=== PATIENT | female | born 1965 | race Caucasian/White ===

== ENCOUNTER → 2017-08-23 | Outpatient (CLI) | payer BC, OTHER ==
[~2017-08-23] MED LIST: ACET-2267 PO; CEPH500C PO; CYCL10TA9 PO; METH4TAB10 PO; PRD10T PO
--- NOTE | 2017-08-24 09:03 | Diagnostic Imaging Report ---
INDICATION: Routine screening. Comparison is made with prior study from 10/10/2013. The current study was also evaluated with a Computer Aided Detection (CAD) system. Both breasts remain markedly dense and heterogeneous, limiting the sensitivity of mammography. The overall parenchymal pattern appears stable. There is a tiny well-defined nodular density in the retroareolar and outer aspect of the right breast best seen on the CC view. Additional views are recommended. Left breast is unremarkable. No malignant appearing microcalcifications are seen. The axillae are unremarkable. IMPRESSION: Retroareolar lateral right breast density. Further evaluation with additional views and ultrasound recommended. ACR BI-RADS Category 0: Incomplete. (Needs additional imaging evaluation). Result letter will be mailed to the patient. Note: At least 10% of breast cancer is not imaged by mammography. Dictated by: Dictated on workstation # [id number]
== END ==
LOC: RAD 15:40
PROVIDERS: ATTEND Nurse Practitioner
DX: Z12.31 Encounter for screening mammogram for malignant neoplasm of breast (principal)
CPT/HCPCS: 77067

== ENCOUNTER → 2018-02-03 | Outpatient (CLI) | payer OTHER ==
[2018-02-03 15:56] LABS: BASOPHILS % (AUTO) 0 % (0-10); EOSINOPHILS # (AUTO) 0.3 10^3/uL (0.0-0.3); EOSINOPHILS % (AUTO) 4 % (0-10); HEMATOCRIT 39 % (35-52); LYMPHOCYTES % (AUTO) 43 % (12-44); MEAN CORPUSCULAR HEMOGLOBIN 30 PG (25-34); MEAN CORPUSCULAR HGB CONC 33 G/DL (32-36); MEAN CORPUSCULAR VOLUME 91 FL (80-99); MEAN PLATELET VOLUME 9.1 FL (7.4-10.4); MONOCYTES # (AUTO) 0.8 X 10^3 (0.0-1.0); MONOCYTES % (AUTO) 12 % (0-12); NEUTROPHILS # (AUTO) 2.8 X 10^3 (1.8-7.8); NEUTROPHILS % (AUTO) 41 % (42-75); PLATELET COUNT 328 10^3/uL (130-400); RED BLOOD COUNT 4.33 10^6/uL (4.35-5.85); RED CELL DISTRIBUTION WIDTH 13.9 % (10.0-14.5); WHITE BLOOD COUNT 6.9 10^3/uL (4.3-11.0)
[2018-02-03 16:19] LABS: ALANINE AMINOTRANSFERASE 27 U/L (0-55); ALBUMIN 4.2 GM/DL (3.2-4.5); ALKALINE PHOSPHATASE 32 U/L (40-136); BILIRUBIN,TOTAL 0.3 MG/DL (0.1-1.0); BUN/CREATININE RATIO 17; CARBON DIOXIDE 27 MMOL/L (21-32); CHLORIDE 107 MMOL/L (98-107); CREATININE SERUM 0.77 MG/DL (0.60-1.30); GFR ESTIMATED > 60; GLUCOSE 96 MG/DL (70-105); POTASSIUM 3.8 MMOL/L (3.6-5.0); SODIUM 141 MMOL/L (135-145); TOTAL PROTEIN 6.8 GM/DL (6.4-8.2)
--- NOTE | 2018-02-03 16:59 | Diagnostic Imaging Report ---
INDICATION: Allergies. Arthralgias. EXAMINATION: Chest 02/03/2018. FINDINGS: Single frontal view of the chest. The cardiomediastinal silhouette is unremarkable. The pulmonary vasculature is within normal limits. The lungs and pleural spaces are clear. IMPRESSION: No evidence of an acute cardiopulmonary process. Dictated by: Dictated on workstation # [id number]
[2018-02-04 14:51] LABS: ERYTHROCYTE SEDIMENTATION RATE 2 MM/HR (0-30)
== END ==
LOC: LAB 15:29
PROVIDERS: ATTEND Nurse Practitioner Family
DX: M25.50 Pain in unspecified joint (principal)
CPT/HCPCS: 36415; 71045; 80053; 85025; 85652; 86038; 86141

== ENCOUNTER → 2019-12-15 | Outpatient (CLI) | payer OTHER | LOC: LABNPT 08:54 | PROVIDERS: ATTEND Internal Medicine | DX: R11.0 Nausea (principal); Z20.828 Contact with and (suspected) exposure to other viral communicable diseases | CPT/HCPCS: 87635 ==

== ENCOUNTER → 2021-01-15 | Outpatient (CLI) | payer OTHER ==
[2021-01-15 13:31] LABS: BASOPHILS # (AUTO) 0.1 10^3/uL (0.0-0.1); BASOPHILS % (AUTO) 1 % (0-10); EOSINOPHILS # (AUTO) 0.2 10^3/uL (0.0-0.3); EOSINOPHILS % (AUTO) 2 % (0-10); HEMATOCRIT 41 % (35-52); HEMOGLOBIN 13.3 g/dL (11.5-16.0); LYMPHOCYTES # (AUTO) 3.1 10^3/uL (1.0-4.0); LYMPHOCYTES % (AUTO) 44 % (12-44); MEAN CORPUSCULAR HEMOGLOBIN 30 pg (25-34); MEAN CORPUSCULAR HGB CONC 33 g/dL (32-36); MEAN CORPUSCULAR VOLUME 93 fL (80-99); MEAN PLATELET VOLUME 9.1 fL (9.0-12.2); MONOCYTES # (AUTO) 0.7 10^3/uL (0.0-1.0); MONOCYTES % (AUTO) 10 % (0-12); NEUTROPHILS # (AUTO) 3.1 10^3/uL (1.8-7.8); NEUTROPHILS % (AUTO) 43 % (42-75); PLATELET COUNT 303 10^3/uL (130-400); WHITE BLOOD COUNT 7.1 10^3/uL (4.3-11.0)
[2021-01-15 13:50] LABS: ALBUMIN 3.9 GM/DL (3.2-4.5); BILIRUBIN,TOTAL 0.4 MG/DL (0.1-1.0); CALCIUM 8.6 MG/DL (8.5-10.1); CREATININE SERUM 0.83 MG/DL (0.60-1.30); POTASSIUM 3.6 MMOL/L (3.6-5.0); TOTAL PROTEIN 6.7 GM/DL (6.4-8.2)
--- NOTE | 2021-01-15 13:59 | Diagnostic Imaging Report ---
EXAMINATION: Chest three views. HISTORY: Cough and shortness of breath. COMPARISON: 02/03/2018 FINDINGS: A frontal, apical, lordotic and lateral view were obtained. Lungs are hyperinflated. No pleural effusion or pneumothorax. No edema or pneumonia. Heart size is normal. IMPRESSION: 1. Clear lungs. Dictated by: Dictated on workstation # [id number]
== END ==
LOC: RAD 13:11
PROVIDERS: ATTEND Nurse Practitioner Family
DX: R05 Cough (principal); R06.02 Shortness of breath
CPT/HCPCS: 36415; 71047; 80053; 85025; 86738

== ENCOUNTER → 2021-01-27 | Outpatient (CLI) | payer OTHER ==
[2021-01-27 10:20] LABS: BASOPHILS # (AUTO) 0.1 10^3/uL (0.0-0.1); BASOPHILS % (AUTO) 1 % (0-10); EOSINOPHILS # (AUTO) 0.1 10^3/uL (0.0-0.3); EOSINOPHILS % (AUTO) 1 % (0-10); HEMATOCRIT 43 % (35-52); HEMOGLOBIN 13.8 g/dL (11.5-16.0); LYMPHOCYTES # (AUTO) 2.3 10^3/uL (1.0-4.0); LYMPHOCYTES % (AUTO) 31 % (12-44); MEAN CORPUSCULAR HEMOGLOBIN 31 pg (25-34); MEAN CORPUSCULAR HGB CONC 32 g/dL (32-36); MEAN CORPUSCULAR VOLUME 95 fL (80-99); MEAN PLATELET VOLUME 8.9 fL (9.0-12.2); MONOCYTES # (AUTO) 0.8 10^3/uL (0.0-1.0); MONOCYTES % (AUTO) 11 % (0-12); NEUTROPHILS # (AUTO) 4.1 10^3/uL (1.8-7.8); NEUTROPHILS % (AUTO) 56 % (42-75); PLATELET COUNT 324 10^3/uL (130-400); WHITE BLOOD COUNT 7.3 10^3/uL (4.3-11.0)
[2021-01-27 10:35] LABS: POTASSIUM 3.9 MMOL/L (3.6-5.0)
[2021-01-27 10:37] LABS: CALCIUM 9.1 MG/DL (8.5-10.1)
[2021-01-27 10:38] LABS: TOTAL PROTEIN 6.7 GM/DL (6.4-8.2)
[2021-01-27 10:40] LABS: BILIRUBIN,TOTAL 0.6 MG/DL (0.1-1.0)
[2021-01-27 10:41] LABS: CREATININE SERUM 0.97 MG/DL (0.60-1.30)
--- NOTE | 2021-01-27 10:47 | Diagnostic Imaging Report ---
EXAMINATION: Chest 2 views. HISTORY: Cough COMPARISON: 01/15/2021 FINDINGS: The lungs are clear without edema or pneumonia. No pleural effusion or pneumothorax. Heart size is normal. IMPRESSION: 1. Clear lungs. Dictated by: Dictated on workstation # [id number]
== END ==
LOC: RAD 09:48
PROVIDERS: ATTEND Internal Medicine
DX: J18.9 Pneumonia, unspecified organism (principal)
CPT/HCPCS: 36415; 71046; 80053; 85025

== ENCOUNTER → 2021-03-10 | Outpatient (CLI) | payer OTHER ==
[~2021-03-10] MED LIST changes: +RT-ALBUTEROL SULF 2.5 MG/3 ML PRE-MIX VIAL INH ONE
== END ==
LOC: RT 15:54
PROVIDERS: ATTEND Nurse Practitioner Family
DX: Z13.83 Encounter for screening for respiratory disorder NEC (principal); R05 Cough; R06.02 Shortness of breath; Z87.01 Personal history of pneumonia (recurrent)
CPT/HCPCS: 94060; 94726; 94729

== ENCOUNTER 2021-11-14 00:29 | Emergency (ER) | payer OTHER ==
[~2021-11-14] VITALS: Ht 160 cm; Wt 53.4 kg
[~2021-11-14 00:29] MED LIST changes: +CYCL10TA25 PO; -CYCL10TA9 PO; -RT-ALBUTEROL SULF 2.5 MG/3 ML PRE-MIX VIAL INH ONE
[2021-11-14 00:53] LABS: BILIRUBIN,URINE NEGATIVE (NEGATIVE); CLARITY,URINE CLEAR; COLOR,URINE YELLOW; GLUCOSE, URINE (UA) NEGATIVE (NEGATIVE); KETONES,URINE NEGATIVE (NEGATIVE); LEUKOCYTE ESTERASE ,URINE NEGATIVE (NEGATIVE); NITRITE,URINE NEGATIVE (NEGATIVE); PH,URINE 8.5 (5-9); PROTEIN,URINE NEGATIVE (NEGATIVE)
[2021-11-14] MEDS ORDERED: ONDANSETRON 4 MG/2 ML (SDV) Z0FRAN IVP ONE ×2 (01:00→01:45)
[2021-11-14] MEDS ORDERED: PANTOPRAZOLE 40 MG (PROTONIX) VIAL IV ONE (01:00)
[2021-11-14] MEDS ORDERED: LACTATED RINGERS 1,000 ML IV ONE (01:00)
[2021-11-14] MEDS ORDERED: fentaNYL INJ 100 MCG/2 ML AMP IVP ONE (01:00)
--- NOTE | 2021-11-14 01:01 | ED Abdominal Pain ---
General Chief Complaint: Abdominal/GI Problems Stated Complaint: ABD PAIN,N/V,CHILLS,CLAMMY Nursing Triage Note: PT ARRIVAL TO ER VIA WHEELCHAIR WITH COMPLAINTS OF ABDOMINAL PAIN/N/V/BODY ACHES X18 HOURS. PT STATES THAT MOST OF THESE COMPLAINTS ARE SIDE EFFECTS OF THE BONEVA MEDICATION SHE TAKES, BUT SHE HASN'T HAD THESE BEFORE. PT STATES THAT SHE HAS VOMITED 4 TIMES TOTAL. PT DENIES CHANGES IN BM'S. PT IS AFEBRILE AT 36.1 Source of Information: Patient Exam Limitations: No Limitations History of Present Illness Date Seen by Provider: November 14, 2021 Time Seen by Provider: 00:43 Initial Comments Patient to ER by private conveyance from home with chief complaint of abdominal pains, sharp cramping especially down her lower left abdomen for the past 18 hours. She has been using Dulcolax and MiraLAX and had a bowel movement normal yesterday. She had only a small bit of stools today. She was trying to clean out her bowels. She has not had a fever nor has she had dysuria cough shortness of breath chest pain. She thought maybe this was related to side effects of her Boniva however she has been on this for couple years with no symptoms like this before. No known sick contacts. She did take Gas-X as well as Tylenol Motrin and her laxatives and then vomited them up about an hour after she took them. Allergies and Home Medications Allergies Coded Allergies: No Known Allergies (Verified Allergy, Unknown, 08/25/15) Patient Home Medication List Home Medication List Reviewed: Yes Acetaminophen (Tylenol Extra Strength) 500 Mg Tablet, 500 MG PO Q4H PRN for PAIN, (Reported) Entered as Reported by: MILTON MEYER on 08/25/15 1021 Cephalexin (Cephalexin) 500 Mg Capsule, 500 MG PO TID, (Reported) Entered as Reported by: MILTON MEYER on 08/25/15 1021 Cyclobenzaprine HCl (Cyclobenzaprine HCl) 10 Mg Tablet, 5 MG PO TID PRN for MUSCLE SPASMS Prescribed by: WENDI LACKEY on 08/26/15 1701 Methylprednisolone (Methylprednisolone Dose Pack) 4 Mg Tab.ds.pk, PO UD, (Reported) Entered as Reported by: MILTON MEYER on 08/25/15 1021 Prednisone (Prednisone) 10 Mg Tab, 10 MG PO UD Prescribed by: WENDI LACKEY on 08/26/15 1525 Review of Systems Review of Systems Constitutional: No chills, No fever; malaise EENTM: No Blurred Vision, No Double Vision Respiratory: Denies Cough, Denies Shortness of Air Cardiovascular: Denies Chest Pain, Denies Lightheadedness Gastrointestinal: See HPI; Denies Abdomen Distended; Abdominal Pain, Constipated; Denies Diarrhea; Nausea; Denies Poor Fluid Intake; Vomiting Genitourinary: Denies Burning, Denies Discharge Musculoskeletal: No back pain, No joint pain Skin: No pruritus, No rash All Other Systems Reviewed Negative Unless Noted: Yes Past Fybbapx-Irturn-Ujsvsy Hx Patient Social History Tobacco Use?: No Use of E-Cig and/or Vaping dev: No Substance use?: No Alcohol Use?: No Pt feels they are or have been: No Immunizations Up To Date PED Vaccines UTD: Yes Influenza Vaccine Up-to-Date: Yes; Up-to-Date COVID19 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 1.0oz. [id number]; 20.00 BMI Method: General Appearance: WD/WN, mild distress HEENT: PERRL/EOMI, pharynx normal Neck: full range of motion, supple, normal inspection Respiratory: lungs clear, normal breath sounds, no respiratory distress, no accessory muscle use Cardiovascular: normal peripheral pulses, regular rate, rhythm Peripheral Pulses: 2+ Radial Pulses (R), 2+ Radial Pulses (L) Gastrointestinal: normal bowel sounds, no organomegaly, guarding (Left lower quadrant), tenderness (Left lower quadrant with guarding) Extremities: normal range of motion, normal inspection, normal capillary refill Neurologic/Psychiatric: alert, normal mood/affect, oriented x 3 Skin: normal color, warm/dry Progress/Results/Core Measures Results/Orders Lab Results Laboratory Tests Test 11/14/21 00:41 11/14/21 00:45 11/14/21 01:05 Range/Units SARS-CoV-2 RNA (RT-PCR) Not Detected Not Detecte Urine Color YELLOW Urine Clarity CLEAR Urine pH 8.5 5-9 Urine Specific [place] 1.015 L 1.016-1.022 Urine Protein NEGATIVE NEGATIVE Urine Glucose (UA) NEGATIVE NEGATIVE Urine Ketones NEGATIVE NEGATIVE Urine Nitrite NEGATIVE NEGATIVE Urine Bilirubin NEGATIVE NEGATIVE Urine Urobilinogen 0.2 < = 1.0 MG/DL Urine Leukocyte Esterase NEGATIVE NEGATIVE Urine RBC (Auto) NEGATIVE NEGATIVE Urine RBC NONE /HPF Urine WBC NONE /HPF Urine Squamous Epithelial Cells 2-5 /HPF Urine Crystals NONE /LPF Urine Bacteria TRACE /HPF Urine Casts NONE /LPF Urine Mucus NEGATIVE /LPF Urine Culture Indicated NO White Blood Count 9.6 4.3-11.0 10^3/uL Red Blood Count 4.39 3.80-5.11 10^6/uL Hemoglobin 13.2 11.5-16.0 g/dL Hematocrit 39 35-52 % Mean Corpuscular Volume 90 80-99 fL Mean Corpuscular Hemoglobin 30 25-34 pg Mean Corpuscular Hemoglobin Concent 34 32-36 g/dL Red Cell Distribution Width 13.8 10.0-14.5 % Platelet Count 300 130-400 10^3/uL Mean Platelet Volume 9.5 9.0-12.2 fL Immature Granulocyte % (Auto) 0 % Neutrophils (%) (Auto) 77 H 42-75 % Lymphocytes (%) (Auto) 16 12-44 % Monocytes (%) (Auto) 5 0-12 % Eosinophils (%) (Auto) 1 0-10 % Basophils (%) (Auto) 1 0-10 % Neutrophils # (Auto) 7.4 1.8-7.8 10^3/uL Lymphocytes # (Auto) 1.5 1.0-4.0 10^3/uL Monocytes # (Auto) 0.5 0.0-1.0 10^3/uL Eosinophils # (Auto) 0.1 0.0-0.3 10^3/uL Basophils # (Auto) 0.1 0.0-0.1 10^3/uL Immature Granulocyte # (Auto) 0.0 0.0-0.1 10^3/uL Sodium Level 140 135-145 MMOL/L Potassium Level 3.8 3.6-5.0 MMOL/L Chloride Level 105 98-107 MMOL/L Carbon Dioxide Level 22 21-32 MMOL/L Anion Gap 13 5-14 MMOL/L Blood Urea Nitrogen 13 7-18 MG/DL Creatinine 0.82 0.60-1.30 MG/DL Estimat Glomerular Filtration Rate 83 BUN/Creatinine Ratio 16 Glucose Level 149 H 70-105 MG/DL Calcium Level 8.9 8.5-10.1 MG/DL Corrected Calcium 9.0 8.5-10.1 MG/DL Total Bilirubin 0.3 0.1-1.0 MG/DL Aspartate Amino Transf (AST/SGOT) 30 5-34 U/L Alanine Aminotransferase (ALT/SGPT) 34 0-55 U/L Alkaline Phosphatase 28 L 40-136 U/L C-Reactive Protein High Sensitivity 0.03 0.00-0.50 MG/DL Total Protein 6.4 6.4-8.2 GM/DL Albumin 3.9 3.2-4.5 GM/DL Lipase 38 8-78 U/L My Orders Orders - KAIT ZARAGOZA Ua Culture If Indicated (11/14/21 00:38) Ed Iv/Invasive Line Start (11/14/21 00:55) Lactated Ringers (Lr 1000 Ml Iv Solution (11/14/21 01:00) Fentanyl Inj (Sublimaze Injection) (11/14/21 01:00) Ondansetron Injection (Zofran Injectio (11/14/21 01:00) Cbc With Automated Diff (11/14/21 00:55) Comprehensive Metabolic Panel (11/14/21 00:55) Hs C Reactive Protein (11/14/21 00:55) Covid 19 Inhouse Test (11/14/21 00:55) Lipase (11/14/21 00:55) Pantoprazole Injection (Protonix Injecti (11/14/21 01:00) Ondansetron Injection (Zofran Injectio (11/14/21 01:45) Medications Given in ED Current Medications Medications Dose Ordered Sig/Kiera Route Start Time Stop Time Status Last Admin Dose Admin Fentanyl Citrate 50 mcg ONCE ONCE IVP 11/14/21 01:00 11/14/21 01:01 DC 11/14/21 01:27 50 MCG Lactated Ringer's 1,000 ml @ 0 mls/hr Q0M ONCE IV 11/14/21 01:00 11/14/21 01:01 DC 11/14/21 01:26 999 MLS/HR Ondansetron HCl 8 mg ONCE ONCE IVP 11/14/21 01:00 11/14/21 01:01 DC 11/14/21 01:27 8 MG Pantoprazole 40 mg ONCE ONCE IV 11/14/21 01:00 11/14/21 01:01 DC 11/14/21 01:26 40 MG Vital Signs/I&O 11/14/21 00:45 Temp 36.1 Pulse 73 Resp 18 B/P (MAP) 126/72 (90) Pulse Ox 100 O2 Delivery Room Air Blood Pressure Mean: 90 Progress Progress Note #1: Time: 01: Progress Note Aseptic vital signs. We will start with some pain medicine, nausea medicine and pantoprazole give her a liter of fluids and get some labs. If this does not significantly improve her or she has concerning labs then we will consider a CT. Gastroenteritis/colitis is most likely if her labs and vital signs remain okay. Progress Note #2: Time: :44 Progress Note Pain is significantly improved after the dose of pain medicine. Unfortunately got little nauseated after the pain medicine. She says that happens with opiates with her. We will give her another 4 mg of Zofran. She has not a 500 cc of saline to go. We discussed her labs and her still normal vital signs. We did offer to do some CT imaging of her belly versus just give her some time to get over this likely viral gastroenteritis and she would prefer the latter. We have given return precautions and will provide her with some pain and nausea medicine. Departure Impression Primary Impression: Viral gastroenteritis Disposition: HOME, SELF-CARE Condition: Stable Departure-Patient Inst. Decision time for Depature: :44 Referrals: REINALDO LEAVITT MD (PCP/Family) Primary Care Physician Patient Instructions: Viral Gastroenteritis, Adult (DC) Add. Discharge Instructions: Keep drinking fluids and stick to a bland, liquid diet until your symptoms are improving. Ondansetron 1 to 2 tablets every 6 hours under the tongue as needed for nausea or vomiting. If you have severe pain that does not respond to Tylenol, Motrin, Gas-X and you can use hydrocodone 1 tablet every 6 hours as needed. Promptly return to the ER if you are having intractable symptoms, fever above 102.5, chest pain or shortness of air. Follow-up with your primary care doctor if you not seeing improvement in your symptoms after 3 to 4 days. All discharge instructions reviewed with patient and/or family. Voiced understanding. Scripts Ondansetron (Ondansetron Odt) 4 Mg Tab.rapdis 4-8 MG PO Q6H PRN for NAUSEA/VOMITING, #15 TAB 0 Refills Prov: KAIT ZARAGOZA 11/14/21 Hydrocodone/Acetaminophen (Hydrocodone-Acetamin 5-325 mg) 5 Mg-325 Mg Tablet 1 TAB PO Q6H PRN for PAIN-MODERATE (5-7), #8 TAB 0 Refills Prov: KAIT ZARAGOZA 11/14/21 Work/School Note: Work Release Form Date Seen in the Emergency Department: November 14, 2021 Return to Work: Nov 16, 2021 Restrictions: No Restrictions KAIT ZARAGOZA November 14, 2021 01:01
[2021-11-14 01:13] LABS: BACTERIA,URINE TRACE /HPF
[2021-11-14 01:20] LABS: BASOPHILS # (AUTO) 0.1 10^3/uL (0.0-0.1); BASOPHILS % (AUTO) 1 % (0-10); EOSINOPHILS # (AUTO) 0.1 10^3/uL (0.0-0.3); EOSINOPHILS % (AUTO) 1 % (0-10); HEMATOCRIT 39 % (35-52); HEMOGLOBIN 13.2 g/dL (11.5-16.0); LYMPHOCYTES # (AUTO) 1.5 10^3/uL (1.0-4.0); LYMPHOCYTES % (AUTO) 16 % (12-44); MEAN CORPUSCULAR HEMOGLOBIN 30 pg (25-34); MEAN CORPUSCULAR HGB CONC 34 g/dL (32-36); MEAN CORPUSCULAR VOLUME 90 fL (80-99); MEAN PLATELET VOLUME 9.5 fL (9.0-12.2); MONOCYTES # (AUTO) 0.5 10^3/uL (0.0-1.0); MONOCYTES % (AUTO) 5 % (0-12); NEUTROPHILS # (AUTO) 7.4 10^3/uL (1.8-7.8); NEUTROPHILS % (AUTO) 77 % (42-75); PLATELET COUNT 300 10^3/uL (130-400); WHITE BLOOD COUNT 9.6 10^3/uL (4.3-11.0)
[2021-11-14 01:27] LABS: ALBUMIN 3.9 GM/DL (3.2-4.5); POTASSIUM 3.8 MMOL/L (3.6-5.0)
[2021-11-14 01:28] LABS: CALCIUM 8.9 MG/DL (8.5-10.1)
[2021-11-14 01:29] LABS: TOTAL PROTEIN 6.4 GM/DL (6.4-8.2)
[2021-11-14 01:31] LABS: BILIRUBIN,TOTAL 0.3 MG/DL (0.1-1.0)
[2021-11-14 01:33] LABS: CREATININE SERUM 0.82 MG/DL (0.60-1.30)
[2021-11-14] MEDS ORDERED: ACHD5005 PO (01:47)
[2021-11-14] MEDS ORDERED: ONDA4TAB11 PO (01:47)
[2021-11-14 02:38] VITALS: BP 122/71
== END 2021-11-14 02:23 | disposition home or self-care (01) ==
LOC: EDUNIT# 00:29 → ER 00:30
DX: A08.4 Viral intestinal infection, unspecified (principal); Z20.822 Contact with and (suspected) exposure to COVID-19
CPT/HCPCS: 36415; 80053; 81000; 83690; 85025; 86141; 87636